=== PATIENT | female | born 1990 | race Caucasian/White ===

== ENCOUNTER 2016-05-08 14:28 | Emergency (ER) | payer OTHER ==
[~2016-05-08] VITALS: Wt 63.6 kg
[~2016-05-08 14:28] MED LIST: BACTDS PO; CEPH-443 PO; PREN-55 PO
[2016-05-08] MEDS ORDERED: LIDOCAINE 1%/EPI (MDV) 20 ML INJ INJ STA ×2 (16:34→16:50)
[2016-05-08] MEDS ORDERED: CLIN-73 PO (17:30)
--- NOTE | 2016-05-08 18:56 | ERD ---
ER Documentation Chief Complaint Date/Time DATE: 05/08/16 TIME: 18:51 Chief Complaint left ear pain and swelling with no drainage. for over a week. HPI 25-year-old female presenting with pain in front of her left ear. She states that she had a pimple there about 1 week ago and popped it. After that she has had progressive swelling and pain in that area radiating into her ear. However she has no specific ear pain. No fevers, chills, difficulty speaking, vision disturbance, or headaches. No drainage from the ears. ROS All systems reviewed and are negative except as per history of present illness. Medications Home Meds Active Scripts Clindamycin Hcl* (Clindamycin Hcl*) 300 Mg Capsule, 300 MG PO TID for 7 Days, # 21 CAP Prov:MITCHELL FRIEDMAN MD 05/08/16 Cephalexin* (Keflex*) 500 Mg Capsule, 500 MG PO QID for 7 Days, CAP Prov:LISANDRO LUIS PA-C 07/11/15 Sulfamethoxazole-Trimethoprim* (Bactrim* DS) 800-160 Mg Tab, 1 TAB PO BID for 7 Days, TAB Prov:LISANDRO LUIS PA-C 07/11/15 Reported Medications Vit/Iron,Carbonyl/Fa (Prenatabs Cbf Tablet) 1 Tab Tablet, 1 TAB PO DAILY 01/16/11 Allergies Allergies: Coded Allergies: No Known Allergy (Unverified , 01/16/11) PMhx/Soc Medical and Surgical Hx: pt denies Medical Hx, pt denies Surgical Hx History of Surgery: No Anesthesia Reaction: No Hx Neurological Disorder: No Hx Respiratory Disorders: No Hx Cardiac Disorders: No Hx Psychiatric Problems: No Hx Miscellaneous Medical Probl: No Hx Alcohol Use: No Hx Substance Use: No Hx Tobacco Use: No FmHx Family History: No diabetes Physical Exam Vitals Vital Signs Date Time Temp Pulse Resp B/P Pulse Ox O2 Delivery O2 Flow Rate FiO2 05/08/16 14:32 98.9 85 21 122/82 98 Physical Exam Const: No apparent distress, nontoxic Head: Atraumatic Eyes: Normal Conjunctiva ENT: Normal External Ears, Nose and Mouth. Normal TMs and external canals bilaterally. Left face with a preauricular 2.5 x 2 cm abscess with fluctuance and no significant surrounding erythema or induration. No erythema over the mastoid process or tenderness. Neck: Full range of motion. No meningismus.No cervical lymphadenopathy. Resp: Clear to auscultation bilaterally Cardio: Regular rate and rhythm Abd: Soft, non tender Skin: No petechiae or rashes, per ENT section Ext: No cyanosis, or edema Neur: Awake and alert and oriented 3, cranial nerves intact, strength and sensations intact in all 4 extremities Results 24 hrs Current Medications Medications (Trade) Dose Ordered Sig/Ronna Route PRN Reason Start Time Stop Time Status Last Admin Dose Admin Lidocaine/ Epinephrine (Xylocaine 1%/ Epi (Mdv) 20 ml) 20 ml ONCE STAT INJ 05/08/16 16:34 05/08/16 16:35 DC Lidocaine/ Epinephrine (Xylocaine 1%/ Epi (Mdv) 20 ml) 20 ml ONCE STAT INJ 05/08/16 16:50 05/08/16 16:51 DC Procedures/MDM Patient is presenting with a left preauricular abscess without associated cellulitis. No evidence of ear involvement or parotitis. I&D of the abscess was performed and it was packed point. Clindamycin was prescribed. Recommended wound check in 2 days for packing removal. Advised to return sooner for any worsening symptoms. Abscess Incision and Drainage with irrigation by me with PA: Location: Left preauricular area Anesthesia: Local 1% with epinephrine lidocaine Technique: Irrigated. Disrupted loculations w/ instrumentation Packing: Placed Complications: None 48 hour wound check. Scar minimization instructions given. Patient's skin symptoms have stabilized while they have been evaluated in the department and are appropriate for outpatient care and work up. Exam and w/u not consistent w/ sepsis, deep space infection, or foreign body. Departure Diagnosis: Primary Impression: Abscess of face Condition: Stable Patient Instructions: Abscess, Incision And Drainage Referrals: YASSINE MAI Additional Instructions: Return in 2 days for a wound check and to remove the packing. MITCHELL FRIEDMAN MD May 08, 2016 18:56
== END 2016-05-08 17:44 | disposition home or self-care (01) ==
LOC: FTE 14:28
DX: L02.01 Cutaneous abscess of face (principal)
CPT/HCPCS: 10061; Z7610

== ENCOUNTER 2016-05-10 15:45 | Emergency (ER) | payer OTHER ==
[~2016-05-10] VITALS: Ht 152.4 cm; Wt 85.5 kg
[~2016-05-10 15:45] MED LIST changes: +CLIN-73 PO
[2016-05-10 15:47] VITALS: Ht 152.4 cm; Wt 85.5 kg
[2016-05-10] MEDS ORDERED: CEPH-443 PO (16:20)
--- NOTE | 2016-05-10 17:23 | ERD ---
ER Documentation Chief Complaint Date/Time DATE: 05/10/16 TIME: 17:19 Chief Complaint ENCOUNTER FOR WOUND CHECK ON LT EAR HPI This is a 25-year-old female ER for recheck of her left ear at abscess. Patient seen here 2 days ago and an incision and drainage was performed. Patient denies any fevers or chills. She denies any more drainage from the area. Patient was given antibiotics however she was not able to fill prescriptions because of her too expensive. He states that pain has gotten significantly better. ROS 12 point review of systems was done, all negative except per HPI. Medications Home Meds Active Scripts Cephalexin* (Keflex*) 500 Mg Capsule, 500 MG PO BID for 7 Days, CAP Prov:MICHELE GARCIA 05/10/16 Clindamycin Hcl* (Clindamycin Hcl*) 300 Mg Capsule, 300 MG PO TID for 7 Days, # 21 CAP Prov:MITCHELL FRIEDMAN MD 05/08/16 Cephalexin* (Keflex*) 500 Mg Capsule, 500 MG PO QID for 7 Days, CAP Prov:LISANDRO LUIS PA-C 07/11/15 Sulfamethoxazole-Trimethoprim* (Bactrim* DS) 800-160 Mg Tab, 1 TAB PO BID for 7 Days, TAB Prov:LISANDRO LUIS PA-C 07/11/15 Reported Medications Vit/Iron,Carbonyl/Fa (Prenatabs Cbf Tablet) 1 Tab Tablet, 1 TAB PO DAILY 01/16/11 Allergies Allergies: Coded Allergies: No Known Allergy (Unverified , 01/16/11) PMhx/Soc History of Surgery: No Anesthesia Reaction: No Hx Neurological Disorder: No Hx Respiratory Disorders: No Hx Cardiac Disorders: No Hx Psychiatric Problems: No Hx Miscellaneous Medical Probl: No Hx Alcohol Use: No Hx Substance Use: No Hx Tobacco Use: No Physical Exam Vitals Vital Signs Date Time Temp Pulse Resp B/P Pulse Ox O2 Delivery O2 Flow Rate FiO2 05/10/16 15:47 98.4 87 16 106/54 100 Physical Exam GENERAL: The patient is well developed and appropriate for usual state of health , in no apparent distress. HEENT: Atraumatic. There is a healing abscess over the tragus. There isn't bleeding. There is no drainage erythema or swelling of the area. Slightly tender to palpation CHEST: Clear to auscultation bilaterally. There are no rales, wheezes or rhonchi. HEART: Regular rate and rhythm. No murmurs, clicks, rubs or gallops. NEURO: Alert and oriented. Procedures/MDM This is a 25-year-old female presents to the ER for I&D recheck. At this time He was successfully removed. There were no evidence of ongoing infection. Patient however was given a prescription for cephalexin which is she were then clindamycin. I also looked a coupon for the patient on [facility]. Patient will go to [facility] or [facility] to fill prescription. Patient is afebrile and extremely well appearing. She needs to follow-up with her primary care doctor within 1-2 days or return to ER sooner symptoms worsen. My medical decision making was shared with the patient she understands and agrees with plan. Departure Diagnosis: Primary Impression: Encounter for wound re-check Condition: Stable Patient Instructions: Wound Care Additional Instructions: Call your primary care doctor TOMORROW for an appointment during the next 1-2 days.See the doctor sooner or return here if your condition worsens before your appointment time. MICHELE GARCIA May 10, 2016 17:23
== END 2016-05-10 16:21 | disposition home or self-care (01) ==
LOC: FTE 15:45
DX: Z48.01 Encounter for change or removal of surgical wound dressing (principal)
CPT/HCPCS: 99283